=== PATIENT | female | born 1955 | race African-American/Black ===

== ENCOUNTER 2016-12-02 23:36 | Emergency (ER) | payer SELFPAY ==
[2016-12-03 00:52] VITALS: BP 150/92; PULSE 72; TEMP 97.9
--- NOTE | 2016-12-03 01:24 | PDOC ---
History of Present Illness - General Chief Complaint: Pain, Acute Stated Complaint: NECK PAIN Time Seen by Provider: 12/03/16 00:57 History Source: Patient Exam Limitations: No Limitations - History of Present Illness Initial Comments: 12/03/16 01:20 61yo Female patient w/ PmHx: Anxiety, Panic disorder, Depression, and Arthritis presents to ED c/o left neck pain x 1 week. Patient reports last night while driving she experienced panic attack which did not go away which she feels is concerning. Patient denies CP, Abd pain, Back pain, n/v/d, fever, cough, dysuria , hematuria, rash, or any other complaints at this time. Timing/Duration: 1 week Severity: mild Modifying Factors: worse with: cold therapy, eating, immobilization, medication , movement, rest, other Associated Symptoms: denies: denies symptoms, chest pain, cough, diaphoresis, fever/chills, headaches, loss of appetite, malaise, nausea/vomiting, rash, seizure, shortness of breath, syncope, weakness, other Aspirin Received prior to arrival: No: no aspirin today, unknown, 81 mg x 1, 81 mg x 2, 81 mg x 3, 81 mg x 4, 325 mg x 1, provided at home, provided by EMS, provided by ED Past History - Travel Traveled outside of the country in the last 30 days: No Close contact w/someone who was outside of country & ill: No - Past Medical History Allergies/Adverse Reactions: Allergies Allergy/AdvReac Type Severity Reaction Status Date / Time clams Allergy Verified 12/03/16 01:02 Home Medications: Ambulatory Orders Diazepam [Valium] 10 mg PO Q8H PRN #21 tablet MDD 3 tabs 12/03/16 Ibuprofen 600 mg PO Q6H PRN #20 tablet 12/03/16 - Psycho/Social/Smoking Cessation Hx Suicidal Ideation: No Smoking History: Never smoked Have you smoked in the past 12 months: No Information on smoking cessation initiated: No Hx Alcohol Use: No Drug/Substance Use Hx: No Review of Systems - Review of Systems Able to Perform ROS?: Yes Is the patient limited [place] proficient: No Constitutional: No: Fever Respiratory: No: Cough, Stridor, Wheezing Cardiac (ROS): No: Chest Pain, Palpitations, Syncope, Chest Tightness Musculoskeletal: Yes: Neck Pain All Other Systems: Reviewed and Negative *Physical Exam - Vital Signs Last Vital Signs Temp Pulse Resp BP Pulse Ox 97.9 F 72 14 150/92 12/03/16 00:44 12/03/16 00:44 12/03/16 00:44 12/03/16 00:44 - Physical Exam General Appearance: Yes: Nourished, Appropriately Dressed. No: Apparent Distress, Mild Distress, Moderate Distress, Severe Distress HEENT: positive: EOMI, BINH, Normal ENT Inspection, Normal Voice, Symmetrical, TMs Normal, Pharynx Normal. negative: Pharyngeal Erythema, Tonsillar Exudate, Tonsillar Erythema, Nasal Congestion, Rhinorrhea, TM Bulging, TM Dull, TM Erythema Neck: positive: Tender (Left trapezius tenderness on palpation), Trachea midline , Supple. negative: Rigid, Decreased range of motion, Stridor, Lymphadenopathy (R), Lymphadenopathy (L), Tender lateral, Tender midline Respiratory/Chest: positive: Lungs Clear, Normal Breath Sounds. negative: Chest Tender, Respiratory Distress, Accessory Muscle Use, Labored Respiration, Rapid RR, Decreased Breath Sounds, Crackles, Rales, Stridor, Wheezing Cardiovascular: positive: Regular Rhythm, Regular Rate Gastrointestinal/Abdominal: positive: Normal Bowel Sounds, Soft. negative: Increased Bowel Sounds, Distended, Guarding, Rebound, Tenderness Musculoskeletal: positive: Normal Inspection, Muscle Spasm (Left neck). negative: CVA Tenderness, Decreased Range of Motion, Vertebral Tenderness Extremity: positive: Normal Capillary Refill, Normal Inspection, Normal Range of Motion. negative: Pedal Edema, Swelling, Calf Tenderness, Erythema, Inflammation Integumentary: positive: Normal Color, Dry, Warm. 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 intact, Fully Oriented, Alert, Normal Mood/ Affect, Normal Response, Motor Strength 5/5 Heart Score/ECG Review - ECG Impressions Normal ECG: Yes Non-specific ST Elevation: No Ischemic Changes: No Bradycardia: Yes Torsades sharlene Pointes: No WPW: No Comment:: 12/03/16 03:21 Bradycardia otherwise normal ECG *DC/Admit/Observation/Transfer Diagnosis at time of Disposition: Musculoskeletal neck pain - Discharge Dispostion Disposition: HOME Condition at time of disposition: Stable Admit: No - Prescriptions Prescriptions: Ibuprofen 600 mg PO Q6H PRN #20 tablet PRN Reason: Mild Pain Diazepam [Valium] 10 mg PO Q8H PRN #21 tablet MDD 3 tabs PRN Reason: Musculoskeletal Neck Pain - Referrals Referrals: STAFF,NOT ON [Primary Care Provider] - - Patient Instructions Printed Discharge Instructions: DI for Neck Pain Additional Instructions: FOLLOW UP WITH YOUR PRIMARY CARE PROVIDER DISCUSSED. TAKE MEDICATIONS PRESCRIBED. DO NOT DRIVE, DRINK ALCOHOL, OR OPERATE HEAVY MACHINERY WHILE TAKING VALIUM. RETURN IF ANY CONCERNS FOR FURTHER EVALUATION. APPLY WARM COMPRESS TO AFFECTED AREA NEEDED. Print Language: TELUGU - Post Discharge Activity Work/School Note: Back to Work
[2016-12-03] MEDS ORDERED: diazePAM 5 MG TABLET PO ONE (03:32)
[2016-12-03] MEDS ORDERED: KETOROLAC TROMETHAMINE 30 MG/1 ML VIAL IM ONE (03:32)
[2016-12-03] MEDS ORDERED: KETOROLAC TROMETHAMINE 30 MG/1 ML VIAL ONE (04:00)
[2016-12-03] MEDS ORDERED: diazePAM 5 MG TABLET ONE (04:00)
--- NOTE | 2016-12-03 10:11 | EKG ---
Test Reason : Blood Pressure : / mmHG Vent. Rate : 058 BPM Atrial Rate : 058 BPM P-R Int : 138 ms QRS Dur : 086 ms QT Int : 422 ms P-R-T Axes : 059 015 030 degrees QTc Int : 414 ms SINUS BRADYCARDIA WHEN COMPARED WITH ECG OF 30-OCT-1999 11:41, LEFT BUNDLE BRANCH BLOCK IS NO LONGER PRESENT Confirmed by DEE DEE HERRERA MD ([id number]) on 12/03/2016 10:11:05 AM Referred By: Confirmed By:DEE DEE HERRERA MD
== END 2016-12-03 04:20 | disposition home or self-care (01) ==
LOC: JER 23:36
PROC: 3E0233Z Introduction of Anti-inflammatory into Muscle, Percutaneous Approach (ICD-10-PCS; principal; 2016-12-02)
DX: M54.2 Cervicalgia (principal); F41.8 Other specified anxiety disorders; F41.0 Panic disorder [episodic paroxysmal anxiety]; M12.9 Arthropathy, unspecified
CPT/HCPCS: 93005; 93010; 99282-25